=== PATIENT | male | born 1990 | race Two or more races ===

== ENCOUNTER 2017-09-14 18:43 | Emergency (ER) | payer MEDICAID ==
[~2017-09-14] VITALS: Ht 175.3 cm; Wt 70.3 kg
[2017-09-14 18:52] VITALS: BP 131/83
== END 2017-09-14 20:25 | disposition left against medical advice (07) ==
LOC: ER 18:43
DX: K08.89 Other specified disorders of teeth and supporting structures (principal); Z53.21 Procedure and treatment not carried out due to patient leaving prior to being seen by health care provider

== ENCOUNTER 2020-02-25 11:12 | Inpatient (IN) | payer MEDICAID ==
[~2020-02-25] VITALS: Ht 175.3 cm; Wt 69.8 kg
[2020-02-25] MEDS ORDERED: SODIUM CHLORIDE 0.9% 1,000 ML IV ONE (11:30)
[2020-02-25 12:14] LABS: Basophils # (auto) 0 10 ^3/uL (0-0.2); Basophils % (auto) 0.4 % (0.0-2.0); Eosinophils # (auto) 0.1 10 ^3/uL (0-0.8); Eosinophils % (auto) 1.2 % (0.0-7.0); Hemoglobin 16.7 g/dL (13.5-17.5); Lymphocytes # (auto) 2.1 10 ^3/uL (0.4-5.4); Lymphocytes % (auto) 37.7 % (10.0-50.0); Mean Corpuscular Hemoglobin 31.2 pg (28.0-32.0); Mean Corpuscular Hgb Conc. 36.4 g/dL (32.0-36.0); Mean Corpuscular Volume 85.7 fL (80.0-100.0); Monocytes # (auto) 0.4 10 ^3/uL (0-1.3); Monocytes % (auto) 6.9 % (0.0-12.0); Neutrophils % (auto) 53.8 % (37.0-80.0); Nucleated Red Blood Cells % 0.2 %; Platelet Count (auto) 150 10^3/uL (140-450); Red Blood Cells 5.37 10^6/uL (4.5-5.90); Red Cell Distribution Width 11.9 % (11.8-14.3); White Blood Cell 5.5 10^3/uL (4.4-10.8)
[2020-02-25 12:33] LABS: Albumin 4.4 g/dL (3.4-5.0); Calcium 9.3 mg/dL (8.5-10.1); Potassium 3.5 mmol/L (3.5-5.1)
[2020-02-25 12:36] LABS: Total Protein 8.4 g/dL (6.4-8.2)
[2020-02-25 13:00] LABS: Urine Bacteria NONE SEEN /hpf (None Seen); Urine Blood Negative /uL (Negative); Urine Specific Gravity 1.042 (1.001-1.035); Urine WBC 1 /hpf (0 - 3)
[2020-02-25] MEDS ORDERED: DOCUSATE SOD 100 MG CAP PO PRN (15:00)
[2020-02-25] MEDS ORDERED: HYDROcodone-ACET 5/325MG TAB PO PRN (15:00)
[2020-02-25] MEDS ORDERED: DEXTROSE (50%) 50ML SYRG IV PRN (15:00)
[2020-02-25] MEDS ORDERED: ONDANSETRON HCL 4 MG/2 ML VIAL IV PRN (15:00)
[2020-02-25] MEDS ORDERED: MORPHINE SULF INJ 2 MG/ML SYRINGE 1ML IV PRN (15:00)
[2020-02-25] MEDS ORDERED: ACETAMINOPHEN 325 MG TAB PO PRN (15:00)
[2020-02-25] MEDS ORDERED: NITROGLYCERIN 0.4 MG SL TAB SL PRN (15:00)
[2020-02-25 16:51] LABS: Cholesterol 163 mg/dL (< 200); Triglycerides 199 mg/dL (< 150)
[2020-02-25 16:53] LABS: HDL Cholesterol 41 mg/dL (40-59); LDL Cholesterol 99 mg/dL (< 100)
[2020-02-25] MEDS: ACCU-CHEK COMFORT CURVE STRIP VI SCH ×2 (17:19→21:52)
[2020-02-25] MEDS: InsuLIN REG 1unit/0.01ml Soln (100units/ml) SC SCH (17:19)
[2020-02-25 20:30] VITALS: BP 131/70
--- NOTE | 2020-02-25 20:30 | NUR ---
MS admit from ER NINFA PIMENTEL admitted to tele/MS after SBAR received. Patient oriented to Nadiya Zuluaga, primary RN, unit, room, bed, and unit policies regarding patient care and visiting hours. Patient weighed by bedscale and encouraged to call if they need something. All questions and concerns addressed, patient verbalized understanding. Note:
[2020-02-25] MEDS: SODIUM CHLOR 0.9% PF (SALINE LOCK) 10ML VIAL/SYR IV SCH (21:50)
[2020-02-25 22:00] VITALS: BP 131/71
[2020-02-25] MEDS ORDERED: InsuLIN REG 1unit/0.01ml Soln (100units/ml) SC SCH (22:00)
[2020-02-26 05:00] VITALS: BP 121/58
[2020-02-26] MEDS: SODIUM CHLOR 0.9% PF (SALINE LOCK) 10ML VIAL/SYR IV SCH ×3 (05:54→21:10)
[2020-02-26] MEDS: InsuLIN REG 1unit/0.01ml Soln (100units/ml) SC SCH ×4 (06:00→21:10)
[2020-02-26] MEDS: ACCU-CHEK COMFORT CURVE STRIP VI SCH ×4 (06:01→21:11)
[2020-02-26 06:40] LABS: Basophils # (auto) 0 10 ^3/uL (0-0.2); Basophils % (auto) 0.2 % (0.0-2.0); Eosinophils # (auto) 0.1 10 ^3/uL (0-0.8); Eosinophils % (auto) 0.8 % (0.0-7.0); Hematocrit 41.2 % (41.0-53.0); Hemoglobin 14.9 g/dL (13.5-17.5); Lymphocytes # (auto) 1.6 10 ^3/uL (0.4-5.4); Lymphocytes % (auto) 19.6 % (10.0-50.0); Mean Corpuscular Hemoglobin 31.1 pg (28.0-32.0); Mean Corpuscular Volume 86.4 fL (80.0-100.0); Monocytes # (auto) 0.4 10 ^3/uL (0-1.3); Monocytes % (auto) 5.2 % (0.0-12.0); Neutrophils % (auto) 74.2 % (37.0-80.0); Nucleated Red Blood Cells % 0.1 %; Platelet Count (auto) 148 10^3/uL (140-450); Red Blood Cells 4.77 10^6/uL (4.5-5.90); Red Cell Distribution Width 11.8 % (11.8-14.3); White Blood Cell 8.1 10^3/uL (4.4-10.8)
[2020-02-26 06:49] LABS: Calcium 9.2 mg/dL (8.5-10.1); Potassium 3.3 mmol/L (3.5-5.1)
[2020-02-26 06:52] LABS: BUN/Creatinine Ratio 19.3
[2020-02-26 09:00] VITALS: BP 116/63
[2020-02-26] MEDS: PANTOPRAZOLE 40 MG TAB PO SCH (10:07)
[2020-02-26] MEDS ORDERED: DEXTROSE (50%) 50ML SYRG IV PRN (10:30)
[2020-02-26] MEDS ORDERED: POTASSIUM CHL 20 Meq TABLET PO ONE (10:30)
--- NOTE | 2020-02-26 11:47 | NUR ---
Nutrition Consult Pt is a consult for new DM. Pt denied pt is DM Est energy needs [id number] kcal (25-30 kcal/kg BW 68.6kg) Est protein needs 54-69g (0.8-1g/kg BW 68.6kg) will reassess prn. Addendum: 02/26/20 at [address] Amended: Links added.
[2020-02-26 13:03] VITALS: BP 116/67
--- NOTE | 2020-02-26 15:00 | NUR ---
PT NOTES PT WAS VERY FRUSTRATED AND ANXIOUS AND EXPRESSED HIS INTENTION OF LEAVING AMA. PT STATED HE NEEDS TO WATCH HIS DAUGHTER FILEMON. EXPLAINED TO PT THAT HE IS FREE TO LEAVE BUT WAS ADVISED TO STAY TO MAKE SURE THAT WE CAN MONITOR HIM AND HIS BLOOD SUGAR LEVELS. HE WAS ADVISED AGAINST LEAVING AMA BECAUSE HE WOULDN'T BE ABLE TO LEAVE WITH ANY PRESCRIPTIONS THAT HE NEEDS. PT IS ALSO AWARE THAT HE WILL BE STARTING LANTUS TONIGHT. I ALSO SPOKE TO PT'S MOTHER. SHE STATED THAT SHE WILL BE WATCHING HIS DAUGHTER. MOTHER ALSO INFORMED RN THAT PT USES MARIJUANA AT HOME FOR ANXIETY AND HE HASN'T HAD IT FOR TWO DAYS NOW
--- NOTE | 2020-02-26 15:15 | NUR ---
PT NOTES PT GIVEN A MASK AND ENCOURAGED TO WALK AROUND THE HALLWAY. PT AMBULATES WITH STEADY GAIT.
--- NOTE | 2020-02-26 15:22 | NUR ---
SPOKE TO DR GONSALEZ. INFORMED OF PT'S ANXIETY ISSUE. ALSO MADE AWARE THAT PT WASN'T ABLE TO GET ANY SLEEP LAST NIGHT. NEW ORDERS RECEIVED.
[2020-02-26] MEDS ORDERED: TEMAZEPAM 15 MG CAP PO PRN (15:30)
[2020-02-26] MEDS ORDERED: LORazepam 0.5 MG TAB PO PRN (15:30)
--- NOTE | 2020-02-26 15:50 | NUR ---
PT NOTES PT IS BACK IN BED. PT IS OFFERED ATIVAN, PO FOR ANXIETY. PT STATED THAT WALKING OUTSIDE MADE HER FEEL A LOT BETTER AND WILL ASK FOR IT IF HE NEEDS IT LATER. PT IS ALSO INFORMED THAT A SLEEPING PILL IS ORDERED FOR HIM TONIGHT IF HE ALSO NEEDS IT. PT VERBALIZED UNDERSTANDING.
--- NOTE | 2020-02-26 18:00 | NUR ---
DIABETIC EDUCATIONAL MATERIALS PROVIDED TO PATIENT. TEACHING AND DEMONSTRATION ON INSULIN SELF-ADMINISTRATION PROVIDED. PT RETURNED DEMONSTRATION. VERBALIZED UNDERSTANDING.
[2020-02-26] MEDS ORDERED: INSULIN LANTUS (GLARGINE) 1 /0.01ml (100units/ml) SC SCH (22:00)
[2020-02-26 23:29] VITALS: BP 120/74
[2020-02-27 05:30] VITALS: BP 106/85
[2020-02-27] MEDS: InsuLIN REG 1unit/0.01ml Soln (100units/ml) SC SCH ×4 (06:07→21:39)
[2020-02-27] MEDS: SODIUM CHLOR 0.9% PF (SALINE LOCK) 10ML VIAL/SYR IV SCH ×3 (06:07→21:42)
[2020-02-27] MEDS: ACCU-CHEK COMFORT CURVE STRIP VI SCH ×4 (06:08→21:39)
[2020-02-27 07:09] LABS: BUN/Creatinine Ratio 17.2; Calcium 9.3 mg/dL (8.5-10.1); Potassium 3.4 mmol/L (3.5-5.1)
[2020-02-27 09:00] VITALS: BP 124/60
[2020-02-27] MEDS: PANTOPRAZOLE 40 MG TAB PO SCH (09:35)
[2020-02-27] MEDS ORDERED: POTASSIUM EFFERVESENT TAB 25 MEQ PO ONE (11:15)
[2020-02-27 13:00] VITALS: BP 128/76
[2020-02-27 16:46] VITALS: BP_SYST 111; BP_SYST 113; BP_DIAS 74; BP_DIAS 81
[2020-02-27 21:00] VITALS: BP 117/71
[2020-02-27] MEDS ORDERED: INSULIN LANTUS (GLARGINE) 1 /0.01ml (100units/ml) SC SCH (22:00)
[2020-02-28 05:00] VITALS: BP 113/72
[2020-02-28 05:59] LABS: Basophils # (auto) 0 10 ^3/uL (0-0.2); Basophils % (auto) 0.6 % (0.0-2.0); Eosinophils # (auto) 0.1 10 ^3/uL (0-0.8); Eosinophils % (auto) 2.6 % (0.0-7.0); Hematocrit 43.3 % (41.0-53.0); Hemoglobin 15.6 g/dL (13.5-17.5); Lymphocytes # (auto) 1.8 10 ^3/uL (0.4-5.4); Lymphocytes % (auto) 38.2 % (10.0-50.0); Mean Corpuscular Hemoglobin 31.1 pg (28.0-32.0); Mean Corpuscular Hgb Conc. 36.1 g/dL (32.0-36.0); Mean Corpuscular Volume 86.3 fL (80.0-100.0); Monocytes # (auto) 0.4 10 ^3/uL (0-1.3); Monocytes % (auto) 8.3 % (0.0-12.0); Neutrophils # (auto) 2.4 10 ^3/uL (1.6-8.6); Neutrophils % (auto) 50.3 % (37.0-80.0); Nucleated Red Blood Cells % 0.4 %; Platelet Count (auto) 145 10^3/uL (140-450); Red Blood Cells 5.02 10^6/uL (4.5-5.90); White Blood Cell 4.8 10^3/uL (4.4-10.8)
[2020-02-28] MEDS: SODIUM CHLOR 0.9% PF (SALINE LOCK) 10ML VIAL/SYR IV SCH (06:14)
[2020-02-28] MEDS: ACCU-CHEK COMFORT CURVE STRIP VI SCH ×2 (06:14→11:55)
[2020-02-28 06:24] LABS: BUN/Creatinine Ratio 16.3; Potassium 4.1 mmol/L (3.5-5.1)
[2020-02-28] MEDS: InsuLIN REG 1unit/0.01ml Soln (100units/ml) SC SCH ×2 (06:33→12:04)
[2020-02-28 09:14] VITALS: BP 123/61
[2020-02-28] MEDS: PANTOPRAZOLE 40 MG TAB PO SCH (10:41)
--- NOTE | 2020-02-28 11:30 | NUR ---
glucometer training educated patient on how to self check blood glucose. Patient returned demonstration no questions.
[2020-02-28 13:00] VITALS: BP 115/62
--- NOTE | 2020-02-28 18:30 | NUR ---
RECEIVED CALL STATING PT DID NOT RECEIVE RX FOR INSULIN SYRINGES PER D/C COPY OF PRESCRIPTIONS, PT DID NOT RECEIVED RX FOR SYRINGES. [employer] ROSE[employer]. SPOKE WITH ALYSHA URIAS. RECEIVED TELEPHONE ORDER TO CALL IN INSULIN SYRINGES TO PATIENTS PREFERRED PHARMACY. WILL CARRY OUT. CALLED PATIENT TO INFORM HIM RX WILL BE CALLED INTO PHARMACY OF CHOICE. PT VERBALIZED UNDERSTANDING. PT STATED TO CALL RX INTO [facility] [address].
--- NOTE | 2020-02-28 18:40 | NUR ---
CALLED [facility] CALLED [facility] [address] [phone], SPOKE WITH FANNY, CALLED IN RX FOR INSULIN SYRINGES. PATIENT ALREADY PREVIOUSLY INFORMED.
== END 2020-02-28 15:25 | disposition home or self-care (01) | DRG 420 ==
LOC: ER 11:12 → OVERFLOW 11:13 → CENTRAL 19:45
PROVIDERS: ADMIT Nurse Practitioner Family; ATTEND Internal Medicine
DX: E11.65 Type 2 diabetes mellitus with hyperglycemia (principal); E87.6 Hypokalemia; N17.0 Acute kidney failure with tubular necrosis; F12.90 Cannabis use, unspecified, uncomplicated; F10.99 Alcohol use, unspecified with unspecified alcohol-induced disorder; Y90.9 Presence of alcohol in blood, level not specified; N18.9 Chronic kidney disease, unspecified
CPT/HCPCS: 36415; 80048; 80053; 80061; 81001; 82010; 82962; 83036; 83735; 84443; 85025; 96360; 96372; G0378; J1815

== ENCOUNTER 2021-12-15 12:27 | Emergency (ER) | payer MEDICAID ==
[2021-12-15] MEDS ORDERED: SODIUM CHLORIDE 0.9% 1,000 ML IV ONE (13:00)
[2021-12-15 13:28] LABS: Basophils # (auto) 0 10 ^3/uL (0-0.2); Basophils % (auto) 0.3 % (0.0-2.0); Eosinophils # (auto) 0 10 ^3/uL (0-0.8); Hematocrit 46.3 % (41.0-53.0); Hemoglobin 15.4 g/dL (13.5-17.5); Lymphocytes # (auto) 0.9 10 ^3/uL (0.4-5.4); Lymphocytes % (auto) 7.8 % (10.0-50.0); Mean Corpuscular Hemoglobin 29.7 pg (28.0-32.0); Mean Corpuscular Hgb Conc. 33.3 g/dL (32.0-36.0); Monocytes # (auto) 0.8 10 ^3/uL (0-1.3); Monocytes % (auto) 6.7 % (0.0-12.0); Neutrophils # (auto) 9.7 10 ^3/uL (1.6-8.6); Neutrophils % (auto) 85.2 % (37.0-80.0); Nucleated Red Blood Cells % 0.1 %; Red Cell Distribution Width 12.4 % (11.8-14.3); White Blood Cell 11.4 10^3/uL (4.4-10.8)
[2021-12-15 13:41] LABS: Albumin 4.6 g/dL (3.4-5.0); Calcium 10.1 mg/dL (8.5-10.1); Potassium 3.7 mmol/L (3.5-5.1)
[2021-12-15 13:46] LABS: BUN/Creatinine Ratio 14.1; Bilirubin, Total 0.8 mg/dL (0.2-1.0); Total Protein 8.8 g/dL (6.4-8.2)
[2021-12-15 14:00] VITALS: BP 101/61
== END 2021-12-15 14:05 ==
LOC: ER 12:27
DX: E11.65 Type 2 diabetes mellitus with hyperglycemia (principal)
CPT/HCPCS: 36415; 80053; 82962; 85025; 99283; J7030

== ENCOUNTER 2023-02-10 06:43 | Inpatient (IN) | payer MEDICAID ==
[~2023-02-10] VITALS: Ht 175.3 cm; Wt 53.3 kg
[2023-02-10] MEDS ORDERED: InsuLIN REG 1unit/0.01ml Soln (100units/ml) IV ONE (07:00)
[2023-02-10] MEDS ORDERED: ASPirin 325 MG TAB PO ONE (07:00)
[2023-02-10] MEDS ORDERED: SODIUM CHLORIDE 0.9% 1,000 ML IV ONE (07:00)
[2023-02-10 07:04] LABS: Basophils # (auto) 0 10 ^3/uL (0-0.2); Basophils % (auto) 0.8 % (0.0-2.0); Eosinophils # (auto) 0.1 10 ^3/uL (0-0.8); Eosinophils % (auto) 1.9 % (0.0-7.0); Hematocrit 48.2 % (41.0-53.0); Hemoglobin 16.2 g/dL (13.5-17.5); Lymphocytes # (auto) 1.3 10 ^3/uL (0.4-5.4); Lymphocytes % (auto) 27.2 % (10.0-50.0); Mean Corpuscular Hemoglobin 30.1 pg (28.0-32.0); Mean Corpuscular Hgb Conc. 33.5 g/dL (32.0-36.0); Mean Corpuscular Volume 89.7 fL (80.0-100.0); Monocytes # (auto) 0.3 10 ^3/uL (0-1.3); Monocytes % (auto) 6.2 % (0.0-12.0); Neutrophils % (auto) 63.9 % (37.0-80.0); Nucleated Red Blood Cells % 0.3 %; Red Blood Cells 5.37 10^6/uL (4.5-5.90); Red Cell Distribution Width 11.8 % (11.8-14.3); White Blood Cell 4.7 10^3/uL (4.4-10.8)
[2023-02-10 07:25] VITALS: PULSE 58; RESP 18; O2SAT 98
[2023-02-10 07:33] LABS: Alanine Aminotransferase 32 U/L (7-40); Albumin 4.4 g/dL (3.2-4.8); Alkaline Phosphatase 103 U/L (46-116); Anion Gap 17.2 (5-15); Aspartate Aminotransferase 19 U/L (13-40); BUN/Creatinine Ratio 13.4 (10.0-20.0); Bilirubin, Total 0.8 mg/dL (0.2-1.0); Blood Urea Nitrogen 16 mg/dL (9-23); Calcium 9.5 mg/dL (8.5-10.1); Carbon Dioxide 18.8 mmol/L (20-30); Chloride 99 mmol/L (98-107); Magnesium 1.8 mg/dL (1.6-2.6); Potassium 4.6 mmol/L (3.5-5.1); Sodium 135 mmol/L (136-145); Total Protein 6.9 g/dL (5.7-8.2)
[2023-02-10 07:38] LABS: INR 0.98 (0.9-1.15); Partial Thromboplastin Time 25.7 SEC (24.5-34.5); Prothrombin Time 10.3 sec (9.3-11.8)
[2023-02-10 07:40] LABS: Glucose 494 mg/dL (74-106)
[2023-02-10 09:25] LABS: Urine Bacteria FEW /hpf (None Seen); Urine Blood Negative /uL (Negative); Urine Clarity Clear (Clear); Urine Color Straw (Yellow); Urine Protein, UAD Negative (Negative); Urine Urobilinogen Normal (Negative); Urine WBC 20 /hpf (0 - 3)
[2023-02-10] MEDS ORDERED: INSULIN LANTUS (GLARGINE) 1 /0.01ml (100units/ml) SC ONE (11:30)
[2023-02-10] MEDS ORDERED: InsuLIN R (HUMAN) 100 UNITS in SODIUM CHL 0.9% 99 ML IV SCH (11:30)
[2023-02-10] MEDS ORDERED: DEXTROSE (50%) 50ML SYRG IV PRN (11:30)
[2023-02-10 11:31] LABS: Base Excess -3.1 mmol/L (-2.0-2.0)
[2023-02-10] MEDS: ACCU-CHEK COMFORT CURVE STRIP VI SCH ×8 (11:58→22:32)
[2023-02-10] MEDS ORDERED: MORPHINE SULFATE INJ 2 MG/ml SYRG IV PRN (12:00)
[2023-02-10] MEDS ORDERED: NITROGLYCERIN 0.4 MG SL TAB SL PRN (12:00)
[2023-02-10] MEDS ORDERED: ONDANSETRON HCL 4 MG/2 ML VIAL IV PRN (12:00)
[2023-02-10] MEDS ORDERED: ACETAMINOPHEN 325 MG TAB PO PRN (12:00)
[2023-02-10] MEDS ORDERED: INSU1INJ19 SC (12:00)
[2023-02-10] MEDS ORDERED: [UNRECOGNIZED DRUG - CODE] SC (12:00)
[2023-02-10] MEDS ORDERED: cefTRIAXone 1GM/50ML D5W 50 ML IV ONE (13:30)
[2023-02-10] MEDS ORDERED: PANTOPRAZOLE 40 MG/10 ML VIAL INJ IV ONE (13:30)
[2023-02-10 18:21] LABS: Alanine Aminotransferase 26 U/L (7-40); Alkaline Phosphatase 74 U/L (46-116); Anion Gap 5.5 (5-15); Aspartate Aminotransferase 10 U/L (13-40); BUN/Creatinine Ratio 10.7 (10.0-20.0); Bilirubin, Total 0.8 mg/dL (0.2-1.0); Blood Urea Nitrogen 12 mg/dL (9-23); Calcium 9.2 mg/dL (8.5-10.1); Carbon Dioxide 27.5 mmol/L (20-30); Chloride 106 mmol/L (98-107); Potassium 3.6 mmol/L (3.5-5.1); Sodium 139 mmol/L (136-145); Total Protein 6.5 g/dL (5.7-8.2)
[2023-02-10 18:24] LABS: Glucose 152 mg/dL (74-106)
[2023-02-10 19:30] VITALS: PULSE 63; RESP 16; O2SAT 99
[2023-02-11] MEDS: InsuLIN REG 1unit/0.01ml Soln (100units/ml) SC SCH ×4 (00:04→12:10)
[2023-02-11] MEDS: ACCU-CHEK COMFORT CURVE STRIP VI SCH ×4 (00:04→12:06)
[2023-02-11 02:03] LABS: Alanine Aminotransferase 21 U/L (7-40); Albumin 3.8 g/dL (3.2-4.8); Alkaline Phosphatase 71 U/L (46-116); Anion Gap 4.7 (5-15); Aspartate Aminotransferase 12 U/L (13-40); BUN/Creatinine Ratio 12.3 (10.0-20.0); Bilirubin, Total 0.7 mg/dL (0.2-1.0); Blood Urea Nitrogen 14 mg/dL (9-23); Carbon Dioxide 28.3 mmol/L (20-30); Chloride 105 mmol/L (98-107); Glucose 207 mg/dL (74-106); Potassium 3.8 mmol/L (3.5-5.1); Sodium 138 mmol/L (136-145); Total Protein 6.1 g/dL (5.7-8.2)
[2023-02-11 05:49] VITALS: BP 109/62; PULSE 66; RESP 14; RESP 18; TEMP 98.8; O2SAT 96
[2023-02-11 07:09] LABS: Basophils # (auto) 0 10 ^3/uL (0-0.2); Basophils % (auto) 0.6 % (0.0-2.0); Eosinophils # (auto) 0.1 10 ^3/uL (0-0.8); Eosinophils % (auto) 1.8 % (0.0-7.0); Hematocrit 42.5 % (41.0-53.0); Hemoglobin 15.1 g/dL (13.5-17.5); Lymphocytes # (auto) 1.5 10 ^3/uL (0.4-5.4); Mean Corpuscular Hemoglobin 31.6 pg (28.0-32.0); Mean Corpuscular Hgb Conc. 35.5 g/dL (32.0-36.0); Monocytes # (auto) 0.3 10 ^3/uL (0-1.3); Monocytes % (auto) 6.4 % (0.0-12.0); Neutrophils % (auto) 60.2 % (37.0-80.0); Nucleated Red Blood Cells % 0.3 %; Red Blood Cells 4.78 10^6/uL (4.5-5.90); Red Cell Distribution Width 11.7 % (11.8-14.3); White Blood Cell 4.9 10^3/uL (4.4-10.8)
[2023-02-11 07:10] LABS: Alanine Aminotransferase 25 U/L (7-40); Alkaline Phosphatase 68 U/L (46-116); Anion Gap 5.8 (5-15); Aspartate Aminotransferase 10 U/L (13-40); BUN/Creatinine Ratio 13.5 (10.0-20.0); Bilirubin, Total 0.9 mg/dL (0.2-1.0); Blood Urea Nitrogen 14 mg/dL (9-23); Calcium 9.3 mg/dL (8.5-10.1); Carbon Dioxide 28.2 mmol/L (20-30); Chloride 106 mmol/L (98-107); Glucose 166 mg/dL (74-106); Sodium 140 mmol/L (136-145); Total Protein 6.5 g/dL (5.7-8.2)
[2023-02-11 08:00] VITALS: PULSE 50
[2023-02-11 09:00] VITALS: BP 101/64; PULSE 69; RESP 20; TEMP 97.9; O2SAT 100
[2023-02-11] MEDS ORDERED: cefTRIAXone 1GM/50ML D5W 50 ML IV SCH (09:00)
[2023-02-11] MEDS ORDERED: PANTOPRAZOLE 40 MG/10 ML VIAL INJ IV SCH (10:00)
[2023-02-11] MEDS ORDERED: INSULIN LANTUS (GLARGINE) 1 /0.01ml (100units/ml) SC SCH (10:00)
[2023-02-11] MEDS ORDERED: ENOXAPARIN SOD 40 MG/0.4 ML SYRINGE SC SCH (10:00)
[2023-02-11 11:57] LABS: Alanine Aminotransferase 25 U/L (7-40); Alkaline Phosphatase 66 U/L (46-116); Anion Gap 6.5 (5-15); Aspartate Aminotransferase 14 U/L (13-40); BUN/Creatinine Ratio 12.9 (10.0-20.0); Bilirubin, Total 0.9 mg/dL (0.2-1.0); Blood Urea Nitrogen 13 mg/dL (9-23); Carbon Dioxide 27.5 mmol/L (20-30); Chloride 103 mmol/L (98-107); Glucose 260 mg/dL (74-106); Potassium 3.7 mmol/L (3.5-5.1); Sodium 137 mmol/L (136-145); Total Protein 6.5 g/dL (5.7-8.2)
[2023-02-11] MEDS ORDERED: INSLISPI SC ×2 (12:47→13:30)
[2023-02-11] MEDS ORDERED: INSU1INJ19 SC (13:28)
[2023-02-11] MEDS ORDERED: CIPR500T4 PO (13:42)
[2023-02-11 15:25] VITALS: BP 101/64; PULSE 69; RESP 20; TEMP 97.9; O2SAT 100
== END 2023-02-11 15:48 | disposition home or self-care (01) | DRG 198 ==
LOC: EDBD 06:43 → ER 06:43 → TELE 11:58 → TELE-CENTR 02-11 05:12
PROVIDERS: ADMIT Internal Medicine Pulmonary Disease; ATTEND Internal Medicine Pulmonary Disease
DX: I24.9 Acute ischemic heart disease, unspecified (principal); E10.10 Type 1 diabetes mellitus with ketoacidosis without coma; Z91.199 Patient's noncompliance with other medical treatment and regimen due to unspecified reason; N39.0 Urinary tract infection, site not specified
CPT/HCPCS: 36415; 36600; 71045; 80053; 81001; 82010; 82805; 82962; 83036; 83735; 83880; 84484; 85025; 85610; 85730; 87086; 93005; 96361; 96372; 96374; 96376; 99291; C9113; G0378; J0696; J1815

== ENCOUNTER 2023-06-05 10:37 | Inpatient (IN) | payer MEDICAID ==
[~2023-06-05] VITALS: Ht 177.8 cm; Wt 72.7 kg
[~2023-06-05 10:37] MED LIST: CIPR500T4 PO; INSLISPI SC; INSU1INJ19 SC; [UNRECOGNIZED DRUG - CODE] SC
[2023-06-05 10:55] VITALS: PULSE 84; RESP 18; O2SAT 98
[2023-06-05] MEDS ORDERED: PROCHLORPERAZINE EDISYLATE 5 MG/ML 2ML VIAL IV ONE (11:00)
[2023-06-05] MEDS ORDERED: LACTATED RINGER'S 2,000 ML IV ONE ×2 (11:00→13:15)
[2023-06-05 11:41] LABS: Basophils # (auto) 0 10 ^3/uL (0-0.2); Basophils % (auto) 0.1 % (0.0-2.0); Eosinophils # (auto) 0 10 ^3/uL (0-0.8); Hematocrit 50.9 % (41.0-53.0); Hemoglobin 17.1 g/dL (13.5-17.5); Lymphocytes # (auto) 0.5 10 ^3/uL (0.4-5.4); Lymphocytes % (auto) 2.8 % (10.0-50.0); Mean Corpuscular Hgb Conc. 33.5 g/dL (32.0-36.0); Mean Corpuscular Volume 89.5 fL (80.0-100.0); Monocytes # (auto) 0.8 10 ^3/uL (0-1.3); Monocytes % (auto) 4.7 % (0.0-12.0); Neutrophils # (auto) 15.3 10 ^3/uL (1.6-8.6); Neutrophils % (auto) 92.4 % (37.0-80.0); Red Blood Cells 5.69 10^6/uL (4.5-5.90); Red Cell Distribution Width 12.3 % (11.8-14.3); White Blood Cell 16.5 10^3/uL (4.4-10.8)
[2023-06-05 12:00] LABS: Alanine Aminotransferase 39 U/L (7-40); Albumin 4.6 g/dL (3.2-4.8); Alkaline Phosphatase 100 U/L (46-116); Anion Gap 26 (5-15); Aspartate Aminotransferase 16 U/L (13-40); BUN/Creatinine Ratio 18.8 (10.0-20.0); Bilirubin, Total 0.9 mg/dL (0.2-1.0); Blood Urea Nitrogen 33 mg/dL (9-23); Calcium 9.8 mg/dL (8.5-10.1); Carbon Dioxide 11 mmol/L (20-30); Chloride 102 mmol/L (98-107); Glucose 394 mg/dL (74-106); Potassium 3.8 mmol/L (3.5-5.1); Sodium 139 mmol/L (136-145); Total Protein 7.2 g/dL (5.7-8.2)
[2023-06-05 12:38] LABS: Lipase 21 U/L (12-53); Magnesium 2.5 mg/dL (1.6-2.6)
[2023-06-05] MEDS ORDERED: POTASSIUM CHLORIDE 40 MEQ, LIDOCAINE 1% (LOCAL ANESTH.) 4 ML in SODIUM CHL 0.9% 250 ML IV ONE (13:15)
[2023-06-05] MEDS ORDERED: InsuLIN REG 1unit/0.01ml Soln (100units/ml) IV ONE (13:15)
[2023-06-05] MEDS ORDERED: metroNIDAZOLE 500MG/100ML 100 ML IV ONE (13:15)
[2023-06-05] MEDS ORDERED: DEXTROSE (50%) 50ML SYRG IV PRN (13:15)
[2023-06-05] MEDS ORDERED: CIPROFLOXACIN 400MG/200ML 200 ML IV ONE (13:15)
[2023-06-05] MEDS ORDERED: INSULIN DRIP 100 UNIT/100ML 100 ML IV SCH (13:15)
[2023-06-05 13:28] LABS: Urine Bacteria FEW /hpf (None Seen); Urine Blood Negative /uL (Negative); Urine Clarity Clear (Clear); Urine Color Colorless (Yellow); Urine Protein, UAD TRACE (Negative); Urine Specific Gravity 1.027 (1.001-1.035); Urine Urobilinogen Normal (Negative); Urine WBC 3 /hpf (0 - 3)
[2023-06-05] MEDS ORDERED: ACETAMINOPHEN 325 MG TAB PO PRN (13:45)
[2023-06-05] MEDS ORDERED: ONDANSETRON HCL 4 MG/2 ML VIAL IV PRN (13:45)
[2023-06-05] MEDS ORDERED: MORPHINE SULFATE INJ 2 MG/ml SYRG IV PRN (13:45)
[2023-06-05] MEDS ORDERED: PANTOPRAZOLE 40 MG/10 ML VIAL INJ IV ONE (13:45)
[2023-06-05] MEDS ORDERED: POTASSIUM EFFERVESENT TAB 25 MEQ PO ONE (13:45)
[2023-06-05] MEDS ORDERED: NITROGLYCERIN 0.4 MG SL TAB SL PRN (13:45)
[2023-06-05] MEDS ORDERED: MESALAMINE 400mg Delayed Release Cap PO ONE (14:15)
[2023-06-05] MEDS: SODIUM CHLORIDE 0.9% 1,000 ML IV SCH ×2 (15:27→23:45)
[2023-06-05] MEDS ORDERED: ADENOSINE 6 MG/2 ML INJ IV ONE (17:00)
[2023-06-05] MEDS ORDERED: METOPROLOL SUCCINATE XL 50 MG TAB PO ONE (17:15)
[2023-06-05] MEDS ORDERED: MAGNESIUM SULFATE 1GM/100ML 100 ML IV ONE (17:15)
[2023-06-05] MEDS ORDERED: METOPROLOL TARTRATE 1MG/1ML-5ML VIAL IV ONE ×2 (17:23→17:30)
[2023-06-05 18:36] LABS: Basophils # (auto) 0.1 10 ^3/uL (0-0.2); Basophils % (auto) 0.7 % (0.0-2.0); Eosinophils # (auto) 0 10 ^3/uL (0-0.8); Eosinophils % (auto) 0.1 % (0.0-7.0); Hematocrit 41.2 % (41.0-53.0); Hemoglobin 13.7 g/dL (13.5-17.5); Lymphocytes # (auto) 0.7 10 ^3/uL (0.4-5.4); Mean Corpuscular Hgb Conc. 33.2 g/dL (32.0-36.0); Mean Corpuscular Volume 90.4 fL (80.0-100.0); Monocytes % (auto) 7.1 % (0.0-12.0); Neutrophils # (auto) 12.2 10 ^3/uL (1.6-8.6); Neutrophils % (auto) 87.1 % (37.0-80.0); Red Blood Cells 4.55 10^6/uL (4.5-5.90); Red Cell Distribution Width 12.4 % (11.8-14.3)
[2023-06-05 18:50] LABS: Amphetamine Screen, Urine Neg (NEGATIVE); Barbiturate Scree,Urine Neg (NEGATIVE); Benzodiazephine Screen, Urine Neg (NEGATIVE); Cannabinoid Screen, Urine Pos (NEGATIVE); Cocaine Screen, Urine Neg (NEGATIVE); Opiate Scree,Urine Neg (NEGATIVE); Phencyclidine Screen, Urine Neg (NEGATIVE)
[2023-06-05 18:52] LABS: Alanine Aminotransferase 26 U/L (7-40); Albumin 3.5 g/dL (3.2-4.8); Alkaline Phosphatase 71 U/L (46-116); Anion Gap 19 (5-15); Aspartate Aminotransferase 15 U/L (13-40); BUN/Creatinine Ratio 12.5 (10.0-20.0); Blood Urea Nitrogen 17 mg/dL (9-23); Calcium 9.2 mg/dL (8.5-10.1); Carbon Dioxide 12 mmol/L (20-30); Chloride 109 mmol/L (98-107); Glucose 299 mg/dL (74-106); Potassium 4.6 mmol/L (3.5-5.1); Sodium 140 mmol/L (136-145)
[2023-06-05 18:53] LABS: Bilirubin, Total 0.9 mg/dL (0.2-1.0); Total Protein 5.6 g/dL (5.7-8.2)
[2023-06-05 19:30] VITALS: PULSE 75; RESP 20; O2SAT 100
[2023-06-05] MEDS: MESALAMINE 400mg Delayed Release Cap PO SCH (20:27)
[2023-06-05] MEDS: NOREPINEPHRINE 8 MG/250ML KIT 250 ML IV SCH (22:00)
[2023-06-05] MEDS: metroNIDAZOLE 500MG/100ML 100 ML IV SCH (22:57)
[2023-06-05] MEDS: CIPROFLOXACIN 400MG/200ML 200 ML IV SCH (22:58)
[2023-06-06] MEDS: ACCU-CHEK COMFORT CURVE STRIP VI SCH ×11 (01:12→22:00)
[2023-06-06 01:26] LABS: Alanine Aminotransferase 24 U/L (7-40); Alkaline Phosphatase 63 U/L (46-116); Anion Gap 8 (5-15); Aspartate Aminotransferase 15 U/L (13-40); BUN/Creatinine Ratio 13.6 (10.0-20.0); Blood Urea Nitrogen 16 mg/dL (9-23); Calcium 8.2 mg/dL (8.7-10.4); Carbon Dioxide 19 mmol/L (20-30); Chloride 111 mmol/L (98-107); Glucose 201 mg/dL (74-106); Potassium 3.7 mmol/L (3.5-5.1); Sodium 138 mmol/L (136-145)
[2023-06-06 01:27] LABS: Bilirubin, Total 1.8 mg/dL (0.2-1.0)
[2023-06-06 04:00] VITALS: PULSE 44; RESP 16; O2SAT 16
[2023-06-06] MEDS ORDERED: SOD CHL 0.45% 1,000 ML IV ONE (04:45)
[2023-06-06] MEDS ORDERED: D5W/SOD CHL 0.45% 1,000 ML IV SCH (04:45)
[2023-06-06 05:28] LABS: Base Excess -7.7 mmol/L (-2.0-2.0)
[2023-06-06 05:45] LABS: Basophils # (auto) 0 10 ^3/uL (0-0.2); Basophils % (auto) 0.1 % (0.0-2.0); Eosinophils # (auto) 0 10 ^3/uL (0-0.8); Eosinophils % (auto) 0.1 % (0.0-7.0); Hematocrit 38.2 % (41.0-53.0); Hemoglobin 13.2 g/dL (13.5-17.5); Lymphocytes # (auto) 1.6 10 ^3/uL (0.4-5.4); Lymphocytes % (auto) 12.8 % (10.0-50.0); Mean Corpuscular Hemoglobin 30.5 pg (28.0-32.0); Mean Corpuscular Hgb Conc. 34.5 g/dL (32.0-36.0); Mean Corpuscular Volume 88.3 fL (80.0-100.0); Monocytes # (auto) 1.3 10 ^3/uL (0-1.3); Monocytes % (auto) 10.6 % (0.0-12.0); Neutrophils # (auto) 9.7 10 ^3/uL (1.6-8.6); Neutrophils % (auto) 76.4 % (37.0-80.0); Nucleated Red Blood Cells % 0.1 %; Red Blood Cells 4.32 10^6/uL (4.5-5.90); Red Cell Distribution Width 12.2 % (11.8-14.3); White Blood Cell 12.6 10^3/uL (4.4-10.8)
[2023-06-06 06:10] LABS: Alanine Aminotransferase 23 U/L (7-40); Albumin 3.2 g/dL (3.2-4.8); Alkaline Phosphatase 65 U/L (46-116); Anion Gap 9 (5-15); Aspartate Aminotransferase 17 U/L (13-40); BUN/Creatinine Ratio 12.4 (10.0-20.0); Bilirubin, Total 2.1 mg/dL (0.2-1.0); Blood Urea Nitrogen 14 mg/dL (9-23); Calcium 8.9 mg/dL (8.5-10.1); Carbon Dioxide 20 mmol/L (20-30); Chloride 109 mmol/L (98-107); Glucose 180 mg/dL (74-106); Potassium 3.4 mmol/L (3.5-5.1); Sodium 138 mmol/L (136-145); Total Protein 5.1 g/dL (5.7-8.2)
[2023-06-06] MEDS: metroNIDAZOLE 500MG/100ML 100 ML IV SCH ×2 (06:11→14:04)
[2023-06-06 07:30] VITALS: PULSE 47; RESP 12; O2SAT 99
[2023-06-06] MEDS ORDERED: POTASSIUM CHL 20 Meq TABLET PO ONE (08:30)
[2023-06-06 09:27] LABS: Anion Gap 7 (5-15); Carbon Dioxide 21 mmol/L (20-30); Chloride 108 mmol/L (98-107); Potassium 3.6 mmol/L (3.5-5.1); Sodium 136 mmol/L (136-145)
[2023-06-06 09:28] LABS: Calcium 8.6 mg/dL (8.5-10.1)
[2023-06-06 09:33] LABS: BUN/Creatinine Ratio 10.7 (10.0-20.0); Blood Urea Nitrogen 12 mg/dL (9-23); Glucose 259 mg/dL (74-106)
[2023-06-06] MEDS ORDERED: METOPROLOL SUCCINATE XL 50 MG TAB PO SCH (10:00)
[2023-06-06] MEDS: PANTOPRAZOLE 40 MG/10 ML VIAL INJ IV SCH (10:16)
[2023-06-06] MEDS: ENOXAPARIN SOD 40 MG/0.4 ML SYRINGE SC SCH (10:16)
[2023-06-06] MEDS: CIPROFLOXACIN 400MG/200ML 200 ML IV SCH (10:21)
[2023-06-06] MEDS ORDERED: DEXTROSE (50%) 50ML SYRG IV PRN ×2 (11:00→17:45)
[2023-06-06] MEDS ORDERED: INSULIN LANTUS (GLARGINE) 1 /0.01ml (100units/ml) SC ONE (11:00)
[2023-06-06] MEDS: InsuLIN REG 1unit/0.01ml Soln (100units/ml) SC SCH ×3 (12:24→22:00)
[2023-06-06] MEDS: NOREPINEPHRINE 8 MG/250ML KIT 250 ML IV SCH (14:16)
[2023-06-06 16:34] LABS: Chloride 110 mmol/L (98-107); Potassium 3.2 mmol/L (3.5-5.1); Sodium 139 mmol/L (136-145)
[2023-06-06 16:35] LABS: Anion Gap 7 (5-15); Carbon Dioxide 22 mmol/L (20-30)
[2023-06-06 16:36] LABS: Calcium 8.6 mg/dL (8.5-10.1)
[2023-06-06 16:40] LABS: BUN/Creatinine Ratio 11.1 (10.0-20.0); Blood Urea Nitrogen 10 mg/dL (9-23)
[2023-06-06 16:56] LABS: Glucose 67 mg/dL (74-106)
[2023-06-06] MEDS: MESALAMINE 400mg Delayed Release Cap PO SCH (18:00)
[2023-06-06 18:57] LABS: Alanine Aminotransferase 23 U/L (7-40); Albumin 3.1 g/dL (3.2-4.8); Alkaline Phosphatase 63 U/L (46-116); Anion Gap 8 (5-15); Aspartate Aminotransferase 22 U/L (13-40); BUN/Creatinine Ratio 9.9 (10.0-20.0); Bilirubin, Total 1.3 mg/dL (0.2-1.0); Blood Urea Nitrogen 9 mg/dL (9-23); Calcium 8.7 mg/dL (8.5-10.1); Carbon Dioxide 22 mmol/L (20-30); Chloride 109 mmol/L (98-107); Glucose 66 mg/dL (74-106); Potassium 3.1 mmol/L (3.5-5.1); Sodium 139 mmol/L (136-145)
[2023-06-06 18:58] LABS: Total Protein 4.9 g/dL (5.7-8.2)
[2023-06-06 20:00] VITALS: PULSE 54; RESP 18; O2SAT 99
[2023-06-06] MEDS: POTASSIUM CHL 20MEQ/100ML 100 ML IV SCH ×2 (21:26→23:19)
[2023-06-06] MEDS ORDERED: InsuLIN REG 1unit/0.01ml Soln (100units/ml) SC SCH (22:00)
[2023-06-07 01:01] VITALS: PULSE 54; RESP 54; O2SAT 97
[2023-06-07] MEDS: metroNIDAZOLE 500MG/100ML 100 ML IV SCH ×4 (01:10→21:42)
[2023-06-07] MEDS: CIPROFLOXACIN 400MG/200ML 200 ML IV SCH ×3 (01:41→22:44)
[2023-06-07] MEDS: ACCU-CHEK COMFORT CURVE STRIP VI SCH ×4 (06:45→22:02)
[2023-06-07] MEDS: InsuLIN REG 1unit/0.01ml Soln (100units/ml) SC SCH ×4 (06:50→22:04)
[2023-06-07 07:30] LABS: Basophils # (auto) 0 10 ^3/uL (0-0.2); Basophils % (auto) 0.2 % (0.0-2.0); Eosinophils # (auto) 0 10 ^3/uL (0-0.8); Eosinophils % (auto) 0.2 % (0.0-7.0); Hematocrit 37.9 % (41.0-53.0); Hemoglobin 12.9 g/dL (13.5-17.5); Lymphocytes # (auto) 1.4 10 ^3/uL (0.4-5.4); Lymphocytes % (auto) 17.5 % (10.0-50.0); Mean Corpuscular Hemoglobin 29.8 pg (28.0-32.0); Mean Corpuscular Hgb Conc. 34.1 g/dL (32.0-36.0); Mean Corpuscular Volume 87.5 fL (80.0-100.0); Monocytes # (auto) 0.9 10 ^3/uL (0-1.3); Monocytes % (auto) 11.6 % (0.0-12.0); Neutrophils # (auto) 5.7 10 ^3/uL (1.6-8.6); Neutrophils % (auto) 70.5 % (37.0-80.0); Red Blood Cells 4.33 10^6/uL (4.5-5.90); Red Cell Distribution Width 12.1 % (11.8-14.3); White Blood Cell 8.1 10^3/uL (4.4-10.8)
[2023-06-07 07:45] VITALS: PULSE 47; RESP 16; O2SAT 99
[2023-06-07 07:45] LABS: Alanine Aminotransferase 30 U/L (7-40); Alkaline Phosphatase 68 U/L (46-116); Anion Gap 13 (5-15); Aspartate Aminotransferase 33 U/L (13-40); BUN/Creatinine Ratio 10.3 (10.0-20.0); Blood Urea Nitrogen 10 mg/dL (9-23); Calcium 8.4 mg/dL (8.5-10.1); Carbon Dioxide 18 mmol/L (20-30); Chloride 103 mmol/L (98-107)
[2023-06-07 07:46] LABS: Total Protein 4.8 g/dL (5.7-8.2)
[2023-06-07 08:03] LABS: Glucose 279 mg/dL (74-106); Sodium 134 mmol/L (136-145)
[2023-06-07] MEDS: PANTOPRAZOLE 40 MG/10 ML VIAL INJ IV SCH (10:26)
[2023-06-07] MEDS: ENOXAPARIN SOD 40 MG/0.4 ML SYRINGE SC SCH (10:26)
[2023-06-07] MEDS ORDERED: INSULIN LANTUS (GLARGINE) 1 /0.01ml (100units/ml) SC ONE (11:30)
[2023-06-07] MEDS: MESALAMINE 400mg Delayed Release Cap PO SCH (18:42)
[2023-06-07 19:45] VITALS: PULSE 59; RESP 20; O2SAT 98
[2023-06-08 05:27] LABS: Basophils # (auto) 0 10 ^3/uL (0-0.2); Basophils % (auto) 0.4 % (0.0-2.0); Eosinophils # (auto) 0 10 ^3/uL (0-0.8); Eosinophils % (auto) 1.1 % (0.0-7.0); Hematocrit 38.9 % (41.0-53.0); Hemoglobin 13.7 g/dL (13.5-17.5); Lymphocytes # (auto) 1.6 10 ^3/uL (0.4-5.4); Mean Corpuscular Hemoglobin 30.3 pg (28.0-32.0); Mean Corpuscular Hgb Conc. 35.2 g/dL (32.0-36.0); Mean Corpuscular Volume 86.1 fL (80.0-100.0); Monocytes # (auto) 0.4 10 ^3/uL (0-1.3); Monocytes % (auto) 9.9 % (0.0-12.0); Neutrophils # (auto) 2.1 10 ^3/uL (1.6-8.6); Neutrophils % (auto) 50.6 % (37.0-80.0); Nucleated Red Blood Cells % 0.2 %; Red Blood Cells 4.52 10^6/uL (4.5-5.90); Red Cell Distribution Width 12.2 % (11.8-14.3); White Blood Cell 4.1 10^3/uL (4.4-10.8)
[2023-06-08 06:04] LABS: Alanine Aminotransferase 29 U/L (7-40); Albumin 3.4 g/dL (3.2-4.8); Alkaline Phosphatase 73 U/L (46-116); Anion Gap 9 (5-15); Aspartate Aminotransferase 23 U/L (13-40); BUN/Creatinine Ratio 8.8 (10.0-20.0); Bilirubin, Total 1.1 mg/dL (0.2-1.0); Blood Urea Nitrogen 7 mg/dL (9-23); Calcium 8.5 mg/dL (8.7-10.4); Carbon Dioxide 29 mmol/L (20-30); Chloride 98 mmol/L (98-107); Potassium 2.9 mmol/L (3.5-5.1); Sodium 136 mmol/L (136-145); Total Protein 5.4 g/dL (5.7-8.2)
[2023-06-08 06:07] LABS: Glucose 159 mg/dL (74-106)
[2023-06-08] MEDS: metroNIDAZOLE 500MG/100ML 100 ML IV SCH (06:20)
[2023-06-08] MEDS ORDERED: INSULIN LANTUS (GLARGINE) 1 /0.01ml (100units/ml) SC SCH (07:00)
[2023-06-08] MEDS: ACCU-CHEK COMFORT CURVE STRIP VI SCH (07:00)
[2023-06-08] MEDS: InsuLIN REG 1unit/0.01ml Soln (100units/ml) SC SCH (07:05)
[2023-06-08 07:23] LABS: Magnesium 1.7 mg/dL (1.6-2.6)
[2023-06-08 07:50] VITALS: BP 107/60; PULSE 57; RESP 13; TEMP 98.8; O2SAT 99
== END 2023-06-08 10:31 | disposition left against medical advice (07) | DRG 720 ==
LOC: ER 10:37 → EDBD 10:37 → TELE 13:40 → TELE-CENTR 06-06 13:40
PROVIDERS: ADMIT Nurse Practitioner Family; ATTEND Internal Medicine
DX: A41.9 Sepsis, unspecified organism (principal); N17.0 Acute kidney failure with tubular necrosis; R65.21 Severe sepsis with septic shock; E10.10 Type 1 diabetes mellitus with ketoacidosis without coma; Z53.29 Procedure and treatment not carried out because of patient's decision for other reasons; K52.9 Noninfective gastroenteritis and colitis, unspecified; I47.19 Other supraventricular tachycardia; E86.0 Dehydration; Z82.3 Family history of stroke; Z82.5 Family history of asthma and other chronic lower respiratory diseases; Z91.199 Patient's noncompliance with other medical treatment and regimen due to unspecified reason; Z79.4 Long term (current) use of insulin
CPT/HCPCS: 36415; 36600; 71045; 74176; 80048; 80053; 80307; 81001; 82010; 82805; 82962; 83036; 83690; 83735; 83930; 84100; 84443; 84484; 85025; 93005; 93306; C9113; G0378; J0153; J1815; J2001; J3480; J3490